=== PATIENT | male | born 1930 | race Caucasian/White ===

== ENCOUNTER → 2017-05-23 | Outpatient (POV) | LOC: OUTPT 00:01 | PROVIDERS: ATTEND Otolaryngology | DX: H91.90 Unspecified hearing loss, unspecified ear (principal) | CPT/HCPCS: 92557; 92567 ==

== ENCOUNTER 2018-12-27 10:00 | Outpatient (RCR) ==
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
--- NOTE | 2018-12-21 12:06 | RS.OPPTDN ---
Subjective Date of Note: 12/21/18 Visit #: 2 Number of visits approved by Insurance: NA Date of Evaluation: 12/19/18 Payer Source: MEDICARE Treatment Diagnosis: subdural hematoma Current Subjective/complaints:: Patient very pleasant and motivated to improve.He is doing his HEP often. *Precautions: fall precautions Interventions - Exercise/Activities/Manual Therapy Exercises/Activities: 50 mins. total of ther. ex for LE strengthenng using green theraband for hip abd/add,isometric hip abd /add with therapy ball, bilateral leg press @ 75 # for 02/08 .Standing balance activities for side - stepping ,high -stepping ,heel to toe with CGA/ min. assist of 1. Total minutes of Exercise: 50 Manual Therapy: n/a Total minutes of Manual Therapy: 0 HOME EXERCISE PROGRAM: pt given written HEP including: AP, isometric hip add, seated hip flex, LAQ, seated hip abd/add - Charges Timed Code Treatment Minutes: 50 Total Treatment Time: 50 Procedures billed for this date of service:: ex,NMR 2 Assessment: Patient has good dem,o of each exercises today ,good technique with srengthening,good eccentric control.He has increased trunk sway with heel to toe exercise,but is able to self correct his balnce .We discussed to not do the balance exerises at home ,he understands and agrees to do the strengthening exercises only. Patient Education: Education of diagnosis, Body/Joint mechanics, Home Exercise Program, Home Safety, Activity Modification, Education of Plan of Care Patient demonstrates compliance with HEP?: Yes Short Term Goals Goal #1: pt independent with initial HEP Goal to be met by: 01/09/19 Progress towards Goal:: Progressing Goal #2: Improve BLE strength 4 to 4+/5 Goal to be met by: 01/09/19 Progress towards Goal:: Progressing Goal #3: Improve dyn stand balance as noted by dyn gait index Goal to be met by: 01/09/19 Progress towards Goal:: Progressing Goal #4: pt report no falls at home since eval. Goal to be met by: 01/09/19 Progress towards Goal:: Progressing Alf Goals Goal #1: pt amb community distances with/w/o AD independently no LOB Goal to be met by: 01/30/19 Goal #2: Improve gait speed 1.0meters/sec consistent with community ambulator Goal to be met by: 01/30/19 Goal #3: Dyn gait index score 21/24 to be consistent with min to no risk of falls Goal to be met by: 01/30/19 Goal #4: pt report ability to perform normal household activities independently Goal to be met by: 01/30/19 Plan Dates of Alf Goals: 01/30/19 Expiration date of current Insurance Approval:: NA PLAN: Cont . skilled PT to maximize LE/trunk strength for safe transfers and gait on even/uneven surfaces.
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
--- NOTE | 2018-12-24 08:30 | RS.OTDNOTE ---
Subjective Date of Note: 12/21/18 Visit #: 2 Number of visits approved by Insurance: 12 Date of Evaluation: 12/19/18 Payer Source: MEDICARE Treatment Diagnosis: M25.511 RUE shoulder pain, R27.8 Lack of coordination, M62.81 Weakness *Precautions: fall precautions Current Complaints/Gains: Pt states he does not have any trouble with buttons but writing is a challenge at times. States pain in (R) shoulder. Pain Assessment - Pain Description Pain Description: Dull, Aching Pain Location: right shoulder Pain Description: sore, aches Modalities - Treatment Modality: Ultrasound Parameters/Method Applied: US x 12 mins Treatment Area: (R) shoulder Patient Position: Sitting - Hot Pack/Cryotherapy Treatment: Hot Pack Comments:: HP x 10+ mins Interventions - Exercise/Activities Exercise/Activities/Manual Therapy: Pt ed on HEP/TE/FMC. Restor x 10 mins with 1/4# wrist weights. RTC/AROM B UE's. Pt also performed isometic ex's x 4 directions. HEP education. HOME EXERCISE PROGRAM: isometric exercises to begin. - Objective Findings Objective Findings:: RUE shoulder pain and weakness. Pt has very weak RUE external rotation and shoulder flexion. Impaired coordination and small tremors that are impairing his writing. - Charges Timed Code Treatment Minutes: 51 Total Treatment Time: 62 Procedures billed for this date of service:: HP EX2 US Assessment Patient Education: Education of diagnosis, Body/Joint mechanics, Home Exercise Program, Home Safety, Activity Modification, Education of Plan of Care Patient demonstrates compliance with HEP?: Yes Short Term Goals Goal #1: Pt RUE shoulder strength to increase to 4/5. Goal to be met by: 01/02/19 Progress towards goal: Progressing Goal #2: Pt to increase fine motor coordination to be intact. Goal to be met by: 01/02/19 Progress towards goal: Progressing Goal #3: Pt RUE shoulder pain to decrease to 0-2. Goal to be met by: 01/02/19 Progress towards goal: Progressing Goal #4: Pt to have full shoulder flexion of RUE without pain. Goal to be met by: 01/02/19 Progress towards goal: Progressing Oil Field Equipment Mechanic Goals Goal #1: RUE strength to increase to 4+/5. Goal to be met by: 01/18/19 Progress towards goal: Progressing Goal #2: Pt to be able to write his name more legibly with better coordination. Goal to be met by: 01/18/19 Progress towards goal: Progressing Goal #3: Pt RUE shoulder pain to decrease to 0 with Full AROM. Goal to be met by: 01/18/19 Progress towards goal: Progressing Goal #4: Pt to be independent with his home exercise program Goal to be met by: 01/18/19 Progress towards goal: Progressing Plan Dates of Oil Field Equipment Mechanic Goals: 01/17/19 Expiration date of current Insurance Approval:: 01/17/19 PLAN: Continue per POC to max UE strength and AROM
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
--- NOTE | 2018-12-25 11:57 | RS.OPPTDN ---
Subjective Date of Note: 12/25/18 Visit #: 3 Number of visits approved by Insurance: NA Date of Evaluation: 12/19/18 Payer Source: MEDICARE Treatment Diagnosis: Speech difficulty Current Subjective/complaints:: No c/o,always pleasant and highly motivated to improve. *Precautions: fall precautions Interventions - Exercise/Activities/Manual Therapy Exercises/Activities: 45 mins. total of ther. ex,beginning on elliptical x 2 mins. with supervision ,then LE strengthening /dynamic balance activities, including step ups on 4 " step forward/backward /laterally with CGA of 1.Weaving /stepping over cones in floor with CGA/min. assist of 1.Heel to toe gait with min. of 1.Bilateral leg press ,1 set /15 each @ 75 #,90 # ,and 105#. Total minutes of Exercise: 45 Manual Therapy: n/a Total minutes of Manual Therapy: 0 HOME EXERCISE PROGRAM: pt given written HEP including: AP, isometric hip add, seated hip flex, LAQ, seated hip abd/add - Charges Timed Code Treatment Minutes: 45 Total Treatment Time: 50 Procedures billed for this date of service:: ex 3 Assessment: Patient has increased LE /trunk strength,resulting in steadier transfers and gait.He is able to self -correct any loss of balance today with higher level balance challenges,but is unsteady with weaving around cones or quick change of direction . Patient Education: Education of diagnosis, Body/Joint mechanics, Home Exercise Program, Home Safety, Activity Modification, Education of Plan of Care Patient demonstrates compliance with HEP?: Yes Short Term Goals Goal #1: pt independent with initial HEP Goal to be met by: 01/09/19 Progress towards Goal:: Progressing Goal #2: Improve BLE strength 4 to 4+/5 Goal to be met by: 01/09/19 Progress towards Goal:: Progressing Goal #3: Improve dyn stand balance as noted by dyn gait index Goal to be met by: 01/09/19 Progress towards Goal:: Progressing Goal #4: pt report no falls at home since eval. Goal to be met by: 01/09/19 Progress towards Goal:: Progressing Piano Accompanist Goals Goal #1: pt amb community distances with/w/o AD independently no LOB Goal to be met by: 01/30/19 Goal #2: Improve gait speed 1.0meters/sec consistent with community ambulator Goal to be met by: 01/30/19 Goal #3: Dyn gait index score 21/24 to be consistent with min to no risk of falls Goal to be met by: 01/30/19 Goal #4: pt report ability to perform normal household activities independently Goal to be met by: 01/30/19 Plan Dates of Piano Accompanist Goals: 01/30/19 Expiration date of current Insurance Approval:: NA PLAN: Cont. skilled PT to increase LE strength,improve dynamic balance for safer gait on all surfaces.
--- NOTE | 2018-12-26 08:25 | RS.OTDNOTE ---
Subjective Date of Note: 12/25/18 Visit #: 3 Number of visits approved by Insurance: 12 Date of Evaluation: 12/19/18 Payer Source: MEDICARE Treatment Diagnosis: M25.511 RUE shoulder pain, R27.8 Lack of coordination, M62.81 Weakness *Precautions: fall precautions Current Complaints/Gains: Pt states some (R) shoulder soreness. states tremors while eating and writing. 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 Pain Assessment - Pain Description Pain Description: Dull, Aching Pain Location: right shoulder Pain Description: sore, aches Modalities - Treatment Modality: Ultrasound Parameters/Method Applied: 1.5w/cm2 x10 mins Treatment Area: anterior shoulder - Hot Pack/Cryotherapy Treatment: Hot Pack Comments:: HP x 10+ mins prior to US Interventions - Exercise/Activities Exercise/Activities/Manual Therapy: Pt ed on HEP/TE/FMC. Restor x 10 mins with 1/4# wrist weights. RTC/AROM B UE's. Pt also performed isometic ex's x 4 directions. HEP education continues. Gradded thera-putty and digi-flex hand strengthing. HOME EXERCISE PROGRAM: isometric exercises and thera-putty HEP - Objective Findings Objective Findings:: RUE shoulder pain and weakness. Pt has very weak RUE external rotation and shoulder flexion. Impaired coordination and small tremors that are impairing his writing. - Charges Timed Code Treatment Minutes: 52 Total Treatment Time: 61 Procedures billed for this date of service:: HP US EX ACT Assessment Patient Education: Education of diagnosis, Body/Joint mechanics, Home Exercise Program, Home Safety, Activity Modification, Education of Plan of Care Patient demonstrates compliance with HEP?: Yes Short Term Goals Goal #1: Pt RUE shoulder strength to increase to 4/5. Goal to be met by: 01/02/19 Progress towards goal: Progressing Goal #2: Pt to increase fine motor coordination to be intact. Goal to be met by: 01/02/19 Progress towards goal: Progressing Goal #3: Pt RUE shoulder pain to decrease to 0-2. Goal to be met by: 01/02/19 Progress towards goal: Progressing Goal #4: Pt to have full shoulder flexion of RUE without pain. Goal to be met by: 01/02/19 Progress towards goal: Progressing Half-Way Goals Goal #1: RUE strength to increase to 4+/5. Goal to be met by: 01/18/19 Progress towards goal: Progressing Goal #2: Pt to be able to write his name more legibly with better coordination. Goal to be met by: 01/18/19 Progress towards goal: Progressing Goal #3: Pt RUE shoulder pain to decrease to 0 with Full AROM. Goal to be met by: 01/18/19 Progress towards goal: Progressing Goal #4: Pt to be independent with his home exercise program Goal to be met by: 01/18/19 Progress towards goal: Progressing Plan Dates of Data Modeling Specialist Goals: 01/17/19 Expiration date of current Insurance Approval:: 01/17/19 PLAN: Continue per POC to max functional UE AROM/strength
--- NOTE | 2018-12-27 11:33 | RS.OPPTDN ---
Subjective Date of Note: 12/27/18 Visit #: 4 Number of visits approved by Insurance: NA Date of Evaluation: 12/19/18 Payer Source: MEDICARE Treatment Diagnosis: Speech difficulty Current Subjective/complaints:: Patient reports he occasionally has difficulty with "getting the words out",but otherwise feels good.He is highly motivated to improve. *Precautions: fall precautions Interventions - Exercise/Activities/Manual Therapy Exercises/Activities: 45 mins. total of ther. ex,beginning on elliptical x 2 mins. with supervision ,then LE strengthening /dynamic balance activities, including standing on mini-tramp and reaching for cones at arms length step ups on 4 " step forward/backward /laterally with CGA of 1.Weaving /stepping over cones in floor with CGA/min. assist of 1.Heel to toe gait with min. of 1.Bilateral leg press ,315 @ 105#. Total minutes of Exercise: 45 Manual Therapy: n/a Total minutes of Manual Therapy: 0 HOME EXERCISE PROGRAM: pt given written HEP including: AP, isometric hip add, seated hip flex, LAQ, seated hip abd/add - Charges Timed Code Treatment Minutes: 45 Total Treatment Time: 45 Procedures billed for this date of service:: ex 3 Assessment: Patient progressing well ,improved step length and GABBY with walking, has minimal loss of balance standing on trampoline ,but able to self -correct with verbal cues only.He is compliant to HEP daily. Patient Education: Education of diagnosis, Body/Joint mechanics, Home Exercise Program, Home Safety, Activity Modification, Education of Plan of Care Patient demonstrates compliance with HEP?: Yes Short Term Goals Goal #1: pt independent with initial HEP Goal to be met by: 01/09/19 Progress towards Goal:: Progressing Goal #2: Improve BLE strength 4 to 4+/5 Goal to be met by: 01/09/19 Progress towards Goal:: Progressing Goal #3: Improve dyn stand balance as noted by dyn gait index Goal to be met by: 01/09/19 Progress towards Goal:: Progressing Goal #4: pt report no falls at home since eval. Goal to be met by: 01/09/19 Progress towards Goal:: Progressing Clinical Pharmacy Coordinator Goals Goal #1: pt amb community distances with/w/o AD independently no LOB Goal to be met by: 01/30/19 Progress towards goal: Progressing Goal #2: Improve gait speed 1.0meters/sec consistent with community ambulator Goal to be met by: 01/30/19 Goal #3: Dyn gait index score 21/24 to be consistent with min to no risk of falls Goal to be met by: 01/30/19 Goal #4: pt report ability to perform normal household activities independently Goal to be met by: 01/30/19 Progress towards goal: Progressing Plan Dates of Clinical Pharmacy Coordinator Goals: 01/30/19 Expiration date of current Insurance Approval:: NA PLAN: Cont. skilled PT to maximize trunk/LE strength for safe ADL's.
--- NOTE | 2018-12-27 13:20 | RS.OTDNOTE ---
Subjective Date of Note: 12/27/18 Visit #: 4 Number of visits approved by Insurance: 12 Date of Evaluation: 12/19/18 Payer Source: MEDICARE Treatment Diagnosis: M25.511 RUE shoulder pain, R27.8 Lack of coordination, M62.81 Weakness *Precautions: fall precautions Current Complaints/Gains: Pt states UE feels better but he has not tried playing his violin yet. States pain increase with anterior shoulder palpation. Pain Assessment - Pain Description Pain Description: Dull, Aching Pain Location: right shoulder Pain Description: sore, aches Current Pain Intensity: 3 Worst Pain Intensity: 6 Modalities - Treatment Modality: Ultrasound Parameters/Method Applied: 1.5w/cm2 x 12 mins to anterior shoulder Patient Position: Sitting - Hot Pack/Cryotherapy Treatment: Hot Pack, Cryotherapy Interventions - Exercise/Activities Exercise/Activities/Manual Therapy: Pt ed on HEP/TE/FMC. Restor x 10 mins with 1/4# wrist weights. RTC/AROM B UE's. Pt also performed isometic ex's x 4 directions. HEP education continues. Gradded thera-putty and digi-flex hand strengthing. HOME EXERCISE PROGRAM: isometric exercises and thera-putty HEP - Objective Findings Objective Findings:: RUE shoulder pain and weakness. Pt has very weak RUE external rotation and shoulder flexion. Impaired coordination and small tremors that are impairing his writing/typing. (R) shoulder pain also hindering his ability to hold his violin for extended periods of time. - Charges Timed Code Treatment Minutes: 42 Total Treatment Time: 55 Procedures billed for this date of service:: HP US EX ACT Assessment Patient Education: Education of diagnosis, Body/Joint mechanics, Home Exercise Program, Home Safety, Activity Modification, Education of Plan of Care Patient demonstrates compliance with HEP?: Yes Short Term Goals Goal #1: Pt RUE shoulder strength to increase to 4/5. Goal to be met by: 01/02/19 Progress towards goal: Progressing Goal #2: Pt to increase fine motor coordination to be intact. Goal to be met by: 01/02/19 Progress towards goal: Progressing Goal #3: Pt RUE shoulder pain to decrease to 0-2. Goal to be met by: 01/02/19 Progress towards goal: Progressing Goal #4: Pt to have full shoulder flexion of RUE without pain. Goal to be met by: 01/02/19 Progress towards goal: Progressing Websphere Commerce Architect Goals Goal #1: RUE strength to increase to 4+/5. Goal to be met by: 01/18/19 Progress towards goal: Progressing Goal #2: Pt to be able to write his name more legibly with better coordination. Goal to be met by: 01/18/19 Progress towards goal: Progressing Goal #3: Pt RUE shoulder pain to decrease to 0 with Full AROM. Goal to be met by: 01/18/19 Progress towards goal: Progressing Goal #4: Pt to be independent with his home exercise program Goal to be met by: 01/18/19 Progress towards goal: Progressing Plan Dates of Websphere Commerce Architect Goals: 01/17/19 Expiration date of current Insurance Approval:: 01/17/19 PLAN: Continue per POC to max fx UE strength and AROM
== END 2018-12-27 23:59 ==
PROVIDERS: ATTEND Neurological Surgery
DX: G45.9 Transient cerebral ischemic attack, unspecified (principal); R26.9 Unspecified abnormalities of gait and mobility; R47.9 Unspecified speech disturbances; S06.5X9A Traumatic subdural hemorrhage with loss of consciousness of unspecified duration, initial encounter; R41.841 Cognitive communication deficit; M62.81 Muscle weakness (generalized); I62.00 Nontraumatic subdural hemorrhage, unspecified; M25.511 Pain in right shoulder; R27.8 Other lack of coordination; Z98.890 Other specified postprocedural states

== ENCOUNTER 2019-01-24 09:00 | Outpatient (RCR) ==
--- NOTE | 2019-01-01 11:36 | RS.OPPTDN ---
Subjective Date of Note: 01/01/19 Visit #: 6 Number of visits approved by Insurance: NA Date of Evaluation: 12/19/18 Payer Source: MEDICARE Treatment Diagnosis: Speech difficulty Current Subjective/complaints:: Patient reports increased dizziness yesterday , but feels it may be due to meds. ,as his BP is good and he monitors the BP daily. *Precautions: fall precautions Interventions - Exercise/Activities/Manual Therapy Exercises/Activities: 55 mins. total ,10 min. on bike,then 45 mins. on [employer] for postural stability,limits of stability,toss/catch,weight shifting . Total minutes of Exercise: 55 Manual Therapy: n/a HOME EXERCISE PROGRAM: pt given written HEP including: AP, isometric hip add, seated hip flex, LAQ, seated hip abd/add - Charges Timed Code Treatment Minutes: 45 Total Treatment Time: 55 Procedures billed for this date of service:: NMR 3 Assessment: Patient has improved static and dynamic balance.He is able to self- correct all balance challenges today.He has no c/o dizziness while on BIODEX BALANCE SYSTEM.He is very motivated to improve. Patient Education: Education of diagnosis, Body/Joint mechanics, Home Exercise Program, Home Safety, Activity Modification, Education of Plan of Care Patient demonstrates compliance with HEP?: Yes Short Term Goals Goal #1: pt independent with initial HEP Goal to be met by: 01/09/19 Progress towards Goal:: Progressing Goal #2: Improve BLE strength 4 to 4+/5 Goal to be met by: 01/09/19 Progress towards Goal:: Progressing Goal #3: Improve dyn stand balance as noted by dyn gait index Goal to be met by: 01/09/19 Progress towards Goal:: Progressing Goal #4: pt report no falls at home since eval. Goal to be met by: 01/09/19 Progress towards Goal:: Met Smt Technician Goals Goal #1: pt amb community distances with/w/o AD independently no LOB Goal to be met by: 01/30/19 Progress towards goal: Progressing Goal #2: Improve gait speed 1.0meters/sec consistent with community ambulator Goal to be met by: 01/30/19 Goal #3: Dyn gait index score to be consistent with min to no risk of falls Goal to be met by: 01/30/19 Goal #4: pt report ability to perform normal household activities independently Goal to be met by: 01/30/19 Progress towards goal: Progressing Plan Dates of Snf Goals: 01/30/19 Expiration date of current Insurance Approval:: NA PLAN: Cont. skilled PT to return patient to PLOF ,resulting in safe ADL's.
--- NOTE | 2019-01-01 13:45 | RS.OTDNOTE ---
Subjective Date of Note: 01/01/19 Visit #: 5 Number of visits approved by Insurance: 12 Date of Evaluation: 12/19/18 Payer Source: MEDICARE Treatment Diagnosis: M25.511 RUE shoulder pain, R27.8 Lack of coordination, M62.81 Weakness *Precautions: fall precautions Current Complaints/Gains: Pt continues with c/o pain in his (R) shoulder. States he was able to play his violin in [employer] Monday but does not think he played it as well as normal 2* his bow handeling. Pain Assessment - Pain Description Pain Location: right shoulder Pain Description: sore, aches Current Pain Intensity: 2+ Modalities - Treatment Modality: Ultrasound Parameters/Method Applied: 1.5w/cm2 x12 mins to anterior shoulder. Patient Position: Sitting - Hot Pack/Cryotherapy Treatment: Hot Pack Comments:: x 15 mins prior to TE Interventions - Exercise/Activities Exercise/Activities/Manual Therapy: Pt ed on HEP/TE/FMC continued. Pt also performed isometic ex's x 4 directions and codman's ex's with HEP education continued. Gradded thera-putty and digi-flex hand strengthing and PROM performed with MT to trapezius and anterior shoulder. HEP/worksheet handed out with pt and CG instructions given. HOME EXERCISE PROGRAM: isometric exercises and thera-putty HEP - Objective Findings Objective Findings:: RUE shoulder pain and weakness. Pt has very weak RUE external rotation and shoulder flexion. Impaired coordination and small tremors that are impairing his writing/typing. (R) shoulder pain also hindering his ability to hold his violin for extended periods of time. - Charges Timed Code Treatment Minutes: 48 Total Treatment Time: 61 Procedures billed for this date of service:: EX2 US HP Assessment Patient Education: Education of diagnosis, Body/Joint mechanics, Home Exercise Program, Home Safety, Activity Modification, Education of Plan of Care Patient demonstrates compliance with HEP?: Yes Short Term Goals Goal #1: Pt RUE shoulder strength to increase to 4/5. Goal to be met by: 01/02/19 Progress towards goal: Progressing Goal #2: Pt to increase fine motor coordination to be intact. Goal to be met by: 01/02/19 Progress towards goal: Progressing Goal #3: Pt RUE shoulder pain to decrease to 0-2. Goal to be met by: 01/02/19 Progress towards goal: Progressing Goal #4: Pt to have full shoulder flexion of RUE without pain. Goal to be met by: 01/02/19 Progress towards goal: Progressing Alf Goals Goal #1: RUE strength to increase to 4+/5. Goal to be met by: 01/18/19 Progress towards goal: Progressing Goal #2: Pt to be able to write his name more legibly with better coordination. Goal to be met by: 01/18/19 Progress towards goal: Progressing Goal #3: Pt RUE shoulder pain to decrease to 0 with Full AROM. Goal to be met by: 01/18/19 Progress towards goal: Progressing Goal #4: Pt to be independent with his home exercise program Goal to be met by: 01/18/19 Progress towards goal: Progressing Plan Dates of Tobacco Dipper Goals: 01/17/19 Expiration date of current Insurance Approval:: 01/18/19 PLAN: Continue per POC to max fx UE AROM/strength with decreased c/o pain.
--- NOTE | 2019-01-03 11:14 | RS.OPPTDN ---
Subjective Date of Note: 01/03/19 Visit #: 6 Number of visits approved by Insurance: NA Date of Evaluation: 12/19/18 Payer Source: MEDICARE Treatment Diagnosis: Speech difficulty Current Subjective/complaints:: Patient reports feeling good today.He also went to a basketball game earlier this week,went up 2-3 rows of bleachers using the handrail. *Precautions: fall precautions Interventions - Exercise/Activities/Manual Therapy Exercises/Activities: 50 mins. total ,10 min. on bike,then 40 mins. LE AROM with 4 # resistance for LAQ's,seated hip flexion ,3/15 each.Seated hip abduction with red theraband.Standing balance exercises of heel to toe with gait belt and moderate assist of 1,then side stepping and high stepping with CGA of 1. Total minutes of Exercise: 50 Manual Therapy: n/a HOME EXERCISE PROGRAM: pt given written HEP including: AP, isometric hip add, seated hip flex, LAQ, seated hip abd/add - Charges Timed Code Treatment Minutes: 40 Total Treatment Time: 50 Procedures billed for this date of service:: ex 2,NMR Assessment: Patient continues to have improved dynamic balance ,as the LE's and trunk strength improve.He does lose balance with heel to toe ,but normal balance challenges do not affect his balance.He is highly motivated to improve, does HEP daily. Patient Education: Education of diagnosis, Body/Joint mechanics, Home Exercise Program, Home Safety, Activity Modification, Education of Plan of Care Patient demonstrates compliance with HEP?: Yes Short Term Goals Goal #1: pt independent with initial HEP Goal to be met by: 01/09/19 Progress towards Goal:: Progressing Goal #2: Improve BLE strength 4 to 4+/5 Goal to be met by: 01/09/19 Progress towards Goal:: Met Goal #3: Improve dyn stand balance as noted by dyn gait index Goal to be met by: 01/09/19 Progress towards Goal:: Progressing Goal #4: pt report no falls at home since eval. Goal to be met by: 01/09/19 Progress towards Goal:: Met Mathematics Education Professor Goals Goal #1: pt amb community distances with/w/o AD independently no LOB Goal to be met by: 01/30/19 Progress towards goal: Progressing Goal #2: Improve gait speed 1.0meters/sec consistent with community ambulator Goal to be met by: 01/30/19 (not assessed today) Goal #3: Dyn gait index score 21/24 to be consistent with min to no risk of falls Goal to be met by: 01/30/19 Goal #4: pt report ability to perform normal household activities independently Goal to be met by: 01/30/19 Progress towards goal: Progressing Plan Dates of Mathematics Education Professor Goals: 01/30/19 Expiration date of current Insurance Approval:: NA PLAN: Cont. skilled PT to maximize LE/trunk strength ,for safer gait on all surfaces.
--- NOTE | 2019-01-03 13:42 | RS.OTDNOTE ---
Subjective Date of Note: 01/03/19 Visit #: 6 Number of visits approved by Insurance: 12 Date of Evaluation: 12/19/18 Payer Source: MEDICARE Treatment Diagnosis: M25.511 RUE shoulder pain, R27.8 Lack of coordination, M62.81 Weakness *Precautions: fall precautions Current Complaints/Gains: Pt states arm is feeling better but still not playing the violin as easily. States typing seems easier to keep fingers on the correct keys. Pain Assessment - Pain Description Pain Location: right shoulder Pain Description: sore, aches Modalities - Treatment Modality: Ultrasound Parameters/Method Applied: 1.5w/cm2 x 12 mins to anterior shoulder Patient Position: Sitting - Hot Pack/Cryotherapy Treatment: Cryotherapy Interventions - Exercise/Activities Exercise/Activities/Manual Therapy: Pt ed continued on HEP/TE/FMC. Pt also performed isometic ex's x 4 directions and codman's ex's with HEP education continued. Gradded thera-putty and digi-flex hand strengthing and PROM performed with MT to trapezius and anterior shoulder. Restorator also performed x 10 mins, no rests. HOME EXERCISE PROGRAM: isometric exercises and thera-putty HEP - Objective Findings Objective Findings:: RUE shoulder pain and weakness. Pt has very weak RUE external rotation and shoulder flexion. Impaired coordination and small tremors that are impairing his writing/typing. (R) shoulder pain also hindering his ability to hold his violin for extended periods of time. - Charges Timed Code Treatment Minutes: 51 Total Treatment Time: 62 Procedures billed for this date of service:: CP US EX MT Assessment Patient Education: Education of diagnosis, Body/Joint mechanics, Home Exercise Program, Home Safety, Activity Modification, Education of Plan of Care Patient demonstrates compliance with HEP?: Yes Short Term Goals Goal #1: Pt RUE shoulder strength to increase to 4/5. Goal to be met by: 01/02/19 (4-4/5) Progress towards goal: Progressing Goal #2: Pt to increase fine motor coordination to be intact. Goal to be met by: 01/02/19 Progress towards goal: Progressing Goal #3: Pt RUE shoulder pain to decrease to 0-2. Goal to be met by: 01/02/19 (2/10) Progress towards goal: Partially Met Goal #4: Pt to have full shoulder flexion of RUE without pain. Goal to be met by: 01/02/19 (01/06) Progress towards goal: Partially Met Prison Goals Goal #1: RUE strength to increase to 4+/5. Goal to be met by: 01/18/19 Progress towards goal: Progressing Goal #2: Pt to be able to write his name more legibly with better coordination. Goal to be met by: 01/18/19 Progress towards goal: Progressing Goal #3: Pt RUE shoulder pain to decrease to 0 with Full AROM. Goal to be met by: 01/18/19 Progress towards goal: Progressing Goal #4: Pt to be independent with his home exercise program Goal to be met by: 01/18/19 Progress towards goal: Progressing Plan Dates of Prison Goals: 01/17/19 Expiration date of current Insurance Approval:: 01/17/19 PLAN: Continue per POC to max functional UE AROM with decreased c/o pain.
--- NOTE | 2019-01-08 11:24 | RS.OPPTDN ---
Subjective Date of Note: 01/08/19 Visit #: 7 Number of visits approved by Insurance: NA Date of Evaluation: 12/19/18 Payer Source: MEDICARE Treatment Diagnosis: Speech difficulty Current Subjective/complaints:: Patient is pleased with his progress ,feels his balance is better and his legs feel stronger. *Precautions: fall precautions Interventions - Exercise/Activities/Manual Therapy Exercises/Activities: 50 mins. total ,10 min. on bike,then 40 mins. LE AROM on bilateral leg press,3/15 each with 1 set @ 105#,2 sets @ 120.Single leg press for each @ 45 - 60 # ,3/10.Seated calf raises @ 45 # x 20 reps.Standing balance exercises of high-stepping ,heel to toe side-stepping to L and R. Total minutes of Exercise: 50 Manual Therapy: n/a Total minutes of Manual Therapy: 0 HOME EXERCISE PROGRAM: pt given written HEP including: AP, isometric hip add, seated hip flex, LAQ, seated hip abd/add - Charges Timed Code Treatment Minutes: 40 Total Treatment Time: 50 Procedures billed for this date of service:: ex 2,NMR Assessment: Patient has increased LE strenght,steadier gait .He has no loss of balance with high stepping exercise today,indicating increased strength in the hip abd/adductors also.He reports no headaches or dizziness during the day,no recent falls or near falls at home.He is highly motivated ,desires to return to riding a bike outdoors when feasible. Patient Education: Education of diagnosis, Body/Joint mechanics, Home Exercise Program, Home Safety, Activity Modification, Education of Plan of Care Patient demonstrates compliance with HEP?: Yes Short Term Goals Goal #1: pt independent with initial HEP Goal to be met by: 01/09/19 Progress towards Goal:: Met Goal #2: Improve BLE strength 4 to 4+/5 Goal to be met by: 01/09/19 Progress towards Goal:: Met Goal #3: Improve dyn stand balance as noted by dyn gait index Goal to be met by: 01/09/19 Progress towards Goal:: Progressing Goal #4: pt report no falls at home since eval. Goal to be met by: 01/09/19 Progress towards Goal:: Met Retirement Goals Goal #1: pt amb community distances with/w/o AD independently no LOB Goal to be met by: 01/30/19 Progress towards goal: Progressing Goal #2: Improve gait speed 1.0meters/sec consistent with community ambulator Goal to be met by: 01/30/19 (not assessed today) Progress towards goal: Progressing Goal #3: Dyn gait index score 21/24 to be consistent with min to no risk of falls Goal to be met by: 01/30/19 Goal #4: pt report ability to perform normal household activities independently Goal to be met by: 01/30/19 Progress towards goal: Progressing Plan Dates of Retirement Goals: 01/30/19 Expiration date of current Insurance Approval:: NA PLAN: Cont. skilled PT to return to independent living safely,focusing on balance and gait on all surfaces,even and uneven.
--- NOTE | 2019-01-08 14:49 | RS.OTDNOTE ---
Subjective Date of Note: 01/08/19 Visit #: 7 Number of visits approved by Insurance: 12 Date of Evaluation: 12/19/18 Payer Source: MEDICARE Treatment Diagnosis: M25.511 RUE shoulder pain, R27.8 Lack of coordination, M62.81 Weakness *Precautions: fall precautions Current Complaints/Gains: Pt states he was able to hold his violin and has decreased c/o pain. States "sore spot is smaller and harder to find" with palpation. Pain Assessment - Pain Description Pain Location: right shoulder Pain Description: sore, aches Modalities - Treatment Modality: Ultrasound Parameters/Method Applied: 1.5w/cm2 x 12 mins Treatment Area: anterior shoulder Patient Position: Sitting - Hot Pack/Cryotherapy Treatment: Hot Pack Comments:: Prior to therapy Interventions - Exercise/Activities Exercise/Activities/Manual Therapy: Pt ed continued on HEP/TE/FMC. Pt also performed isometic ex's x 4 directions and codman's ex's with HEP education continued. Gradded thera-putty and digi-flex hand strengthing and PROM performed with MT to trapezius and anterior shoulder. Restorator also performed x 10 mins, no rests. HOME EXERCISE PROGRAM: isometric exercises and thera-putty HEP - Objective Findings Objective Findings:: RUE shoulder pain and weakness. Pt has very weak RUE external rotation and shoulder flexion. Impaired coordination and small tremors that are impairing his writing/typing. (R) shoulder pain also hindering his ability to hold his violin for extended periods of time. - Charges Timed Code Treatment Minutes: 46 Total Treatment Time: 61 Procedures billed for this date of service:: HP US EX ACT Assessment Patient Education: Education of diagnosis, Body/Joint mechanics, Home Exercise Program, Home Safety, Activity Modification, Education of Plan of Care Patient demonstrates compliance with HEP?: Yes Short Term Goals Goal #1: Pt RUE shoulder strength to increase to 4/5. Goal to be met by: 01/02/19 (4-4/5) Progress towards goal: Progressing Goal #2: Pt to increase fine motor coordination to be intact. Goal to be met by: 01/02/19 Progress towards goal: Progressing Goal #3: Pt RUE shoulder pain to decrease to 0-2. Goal to be met by: 01/02/19 (10) Progress towards goal: Partially Met Goal #4: Pt to have full shoulder flexion of RUE without pain. Goal to be met by: 01/02/19 (01/06) Progress towards goal: Partially Met Highway Maintenance Worker Goals Goal #1: RUE strength to increase to 4+/5. Goal to be met by: 01/18/19 Progress towards goal: Progressing Goal #2: Pt to be able to write his name more legibly with better coordination. Goal to be met by: 01/18/19 Progress towards goal: Progressing Goal #3: Pt RUE shoulder pain to decrease to 0 with Full AROM. Goal to be met by: 01/18/19 Progress towards goal: Progressing Goal #4: Pt to be independent with his home exercise program Goal to be met by: 01/18/19 Progress towards goal: Progressing Plan Dates of Highway Maintenance Worker Goals: 01/17/19 Expiration date of current Insurance Approval:: 01/17/19 PLAN: Continue per POC to max functional UE AROM/strength
--- NOTE | 2019-01-10 10:47 | RS.OTDNOTE ---
Subjective Date of Note: 01/10/19 Visit #: 8 Number of visits approved by Insurance: 12 Date of Evaluation: 12/19/18 Payer Source: MEDICARE Treatment Diagnosis: M25.511 RUE shoulder pain, R27.8 Lack of coordination, M62.81 Weakness *Precautions: fall precautions Current Complaints/Gains: pt continues stating UE improvement. States he was able to play his violin yesterday without any increase of pain. States typing is getting better. Pain Assessment - Pain Description Pain Location: right shoulder Pain Description: sore, aches Current Pain Intensity: 0 Worst Pain Intensity: 2 Modalities - Treatment Modality: Ultrasound Parameters/Method Applied: 1.5w/cm2 x 12 mins Treatment Area: anterior shoudler Patient Position: Sitting - Hot Pack/Cryotherapy Treatment: Hot Pack Comments:: HP x 15 mins Interventions - Exercise/Activities Exercise/Activities/Manual Therapy: Pt ed continued on HEP/TE/FMC. Pt also performed isometic ex's x 4 directions and codman's ex's with HEP education continued. Gradded thera-putty and digi-flex hand strengthing and PROM performed with MT to trapezius and anterior shoulder. Restorator also performed x 10 mins, no rests. Yellow t-band/1# hand weight RTC series, 08/27. HOME EXERCISE PROGRAM: isometric exercises and thera-putty HEP - Objective Findings Objective Findings:: RUE shoulder pain and weakness. Pt has very weak RUE external rotation and shoulder flexion. Impaired coordination and small tremors that are impairing his writing/typing. (R) shoulder pain also hindering his ability to hold his violin for extended periods of time. - Charges Timed Code Treatment Minutes: 48 Total Treatment Time: 61 Procedures billed for this date of service:: HP US EX ACT Assessment Patient Education: Education of diagnosis, Body/Joint mechanics, Home Exercise Program, Home Safety, Activity Modification, Education of Plan of Care Patient demonstrates compliance with HEP?: Yes Short Term Goals Goal #1: Pt RUE shoulder strength to increase to 4/5. Goal to be met by: 01/02/19 Progress towards goal: Met Goal #2: Pt to increase fine motor coordination to be intact. Goal to be met by: 01/02/19 Progress towards goal: Partially Met Goal #3: Pt RUE shoulder pain to decrease to 0-2. Goal to be met by: 01/02/19 (01/06) Progress towards goal: Partially Met Goal #4: Pt to have full shoulder flexion of RUE without pain. Goal to be met by: 01/02/19 (01/06) Progress towards goal: Partially Met [facility] Goals Goal #1: RUE strength to increase to 4+/5. Goal to be met by: 01/18/19 Progress towards goal: Progressing Goal #2: Pt to be able to write his name more legibly with better coordination. Goal to be met by: 01/18/19 (enriqueta) Progress towards goal: Partially Met Goal #3: Pt RUE shoulder pain to decrease to 0 with Full AROM. Goal to be met by: 01/18/19 Progress towards goal: Progressing Goal #4: Pt to be independent with his home exercise program Goal to be met by: 01/18/19 Progress towards goal: Progressing Plan Dates of Prison Goals: 01/17/19 Expiration date of current Insurance Approval:: 01/17/19 PLAN: Continue per POC to max functional UE AROM with decreased c/o pain/ fatique.
--- NOTE | 2019-01-10 11:02 | RS.OPPTDN ---
Subjective Date of Note: 01/10/19 Visit #: 8 Number of visits approved by Insurance: NA Date of Evaluation: 12/19/18 Payer Source: MEDICARE Treatment Diagnosis: Speech difficulty Current Subjective/complaints:: no c/o,pleasant and motivated. *Precautions: fall precautions Interventions - Exercise/Activities/Manual Therapy Exercises/Activities: 50 mins. total ,beginning on BIODEX BALANCE SYSTEM for limits of stability ,maze control.Bilateral leg press ,3/15 @ 120 #,then bilateral calf raises @ 60 #. Total minutes of Exercise: 50 Manual Therapy: n/a Total minutes of Manual Therapy: 0 HOME EXERCISE PROGRAM: pt given written HEP including: AP, isometric hip add, seated hip flex, LAQ, seated hip abd/add - Charges Timed Code Treatment Minutes: 50 Total Treatment Time: 50 Procedures billed for this date of service:: NMR 2 , ex 1 Assessment: Patient has improved dynamic balance on the BIODEX today,less cues for technique.The LE's /trunk strength also improving ,as indicated by no recent falls and better gait pattern.He continues to be highly motivated. Patient Education: Education of diagnosis, Body/Joint mechanics, Home Exercise Program, Home Safety, Activity Modification, Education of Plan of Care Patient demonstrates compliance with HEP?: Yes Short Term Goals Goal #1: pt independent with initial HEP Goal to be met by: 01/09/19 Progress towards Goal:: Met Goal #2: Improve BLE strength 4 to 4+/5 Goal to be met by: 01/09/19 Progress towards Goal:: Met Goal #3: Improve dyn stand balance as noted by dyn gait index Goal to be met by: 01/09/19 Progress towards Goal:: Progressing Goal #4: pt report no falls at home since eval. Goal to be met by: 01/09/19 Progress towards Goal:: Met Assisted Goals Goal #1: pt amb community distances with/w/o AD independently no LOB Goal to be met by: 01/30/19 Progress towards goal: Progressing Goal #2: Improve gait speed 1.0meters/sec consistent with community ambulator Goal to be met by: 01/30/19 (not assessed today) Progress towards goal: Progressing Goal #3: Dyn gait index score /24 to be consistent with min to no risk of falls Goal to be met by: 01/30/19 Goal #4: pt report ability to perform normal household activities independently Goal to be met by: 01/30/19 Progress towards goal: Progressing Plan Dates of Assisted Goals: 01/30/19 Expiration date of current Insurance Approval:: NA PLAN: Cont .skilled PT to maximize the LE/trunk strength for safe ADL's .
--- NOTE | 2019-01-15 11:14 | RS.OPPTDN ---
Subjective Date of Note: 01/15/19 Visit #: 9 Number of visits approved by Insurance: NA Date of Evaluation: 12/19/18 Payer Source: MEDICARE Treatment Diagnosis: Speech difficulty Current Subjective/complaints:: No c/o,reports feeling steadier on his feet. *Precautions: fall precautions Interventions - Exercise/Activities/Manual Therapy Exercises/Activities: 55 mins. total ,beginning with seated exercises with 3 # resistance for 3/15 calf-raises,hip flexion,LAQ's.Standing balance exercises standing on [employer] PLATFORM SYSTEM,min assist for green and blue platform,then min to mod assist on black ,softer platform.Side - stepping to L and R with supervision .Sit to stand transfers x 3 without using arms to assist.Ended session on bilateral leg press, @ 120 #,then @ 135#. Total minutes of Exercise: 55 Manual Therapy: n/a Total minutes of Manual Therapy: 0 HOME EXERCISE PROGRAM: pt given written HEP including: AP, isometric hip add, seated hip flex, LAQ, seated hip abd/add - Charges Timed Code Treatment Minutes: 55 Total Treatment Time: 55 Procedures billed for this date of service:: ex 3,NMR Assessment: Patient has increased LE strength ,improved static and dynamic balance,safer transfers.He is very pro-active regarding his health,exercises daily,and has good safety awareness. Patient Education: Education of diagnosis, Body/Joint mechanics, Home Exercise Program, Home Safety, Activity Modification, Education of Plan of Care Patient demonstrates compliance with HEP?: Yes Short Term Goals Goal #1: pt independent with initial HEP Goal to be met by: 01/09/19 Progress towards Goal:: Met Goal #2: Improve BLE strength 4 to 4+/5 Goal to be met by: 01/09/19 Progress towards Goal:: Met Goal #3: Improve dyn stand balance as noted by dyn gait index Goal to be met by: 01/09/19 Progress towards Goal:: Progressing Goal #4: pt report no falls at home since eval. Goal to be met by: 01/09/19 Progress towards Goal:: Met Floorhand Goals Goal #1: pt amb community distances with/w/o AD independently no LOB Goal to be met by: 01/30/19 Progress towards goal: Progressing Goal #2: Improve gait speed 1.0meters/sec consistent with community ambulator Goal to be met by: 01/30/19 (not assessed today) Progress towards goal: Progressing Goal #3: Dyn gait index score 21/24 to be consistent with min to no risk of falls Goal to be met by: 01/30/19 Progress towards goal: Progressing Goal #4: pt report ability to perform normal household activities independently Goal to be met by: 01/30/19 Progress towards goal: Progressing Plan Dates of Floorhand Goals: 01/30/19 Expiration date of current Insurance Approval:: NA PLAN: Cont. skilled PT to return patient to highest LOF possible ,with safe ADL' S.
--- NOTE | 2019-01-15 11:15 | RS.OTDNOTE ---
Subjective Date of Note: 01/15/19 Visit #: 9 Number of visits approved by Insurance: 12 Date of Evaluation: 12/19/18 Payer Source: MEDICARE Treatment Diagnosis: M25.511 RUE shoulder pain, R27.8 Lack of coordination, M62.81 Weakness *Precautions: fall precautions Current Complaints/Gains: Pt continues stating playing his violin is getting easier but no change in handwriting. States he is able to write Edu but Simone his hand gets shaky. Pain Assessment - Pain Description Pain Location: right shoulder Pain Description: sore, aches Modalities - Treatment Modality: Ultrasound Parameters/Method Applied: 1.5w/cm2 x 12 mins, anterior shoulder Patient Position: Sitting - Hot Pack/Cryotherapy Treatment: Hot Pack, Cryotherapy Interventions - Exercise/Activities Exercise/Activities/Manual Therapy: Pt ed continued on HEP/TE/FMC. Pt also performed isometic ex's x 4 directions and codman's ex's with HEP education continued. Gradded thera-putty and digi-flex hand strengthing and PROM performed with MT to trapezius and anterior shoulder. Restorator also performed x 10 mins, no rests. Yellow progressed to red t-band/1# hand weight RTC series, 08/27. Pt also ed on handwriting ex's including hoops, lines, curves , and hills. HOME EXERCISE PROGRAM: isometric exercises and thera-putty HEP - Objective Findings Objective Findings:: RUE shoulder pain and weakness. Pt has very weak RUE external rotation and shoulder flexion. Impaired coordination and small tremors that are impairing his writing/typing. (R) shoulder pain also hindering his ability to hold his violin for extended periods of time. - Charges Timed Code Treatment Minutes: 51 Total Treatment Time: 60 Procedures billed for this date of service:: CP US EX ACT Short Term Goals Goal #1: Pt RUE shoulder strength to increase to 4/5. Goal to be met by: 01/02/19 Progress towards goal: Met Goal #2: Pt to increase fine motor coordination to be intact. Goal to be met by: 01/02/19 Progress towards goal: Partially Met Goal #3: Pt RUE shoulder pain to decrease to 0-2. Goal to be met by: 01/02/19 (01/06) Progress towards goal: Partially Met Goal #4: Pt to have full shoulder flexion of RUE without pain. Goal to be met by: 01/02/19 (01/06) Progress towards goal: Partially Met Nursing Home Goals Goal #1: RUE strength to increase to 4+/5. Goal to be met by: 01/18/19 Progress towards goal: Progressing Goal #2: Pt to be able to write his name more legibly with better coordination. Goal to be met by: 01/18/19 (fatiques) Progress towards goal: Partially Met Goal #3: Pt RUE shoulder pain to decrease to 0 with Full AROM. Goal to be met by: 01/18/19 Progress towards goal: Progressing Goal #4: Pt to be independent with his home exercise program Goal to be met by: 01/18/19 Progress towards goal: Progressing Plan Dates of Oiler Helper Goals: 01/17/19 Expiration date of current Insurance Approval:: 01/17/19 PLAN: Continue per POC to max fx UE AROM with decreased c/o pain
--- NOTE | 2019-01-17 11:32 | RS.OPPTDN ---
Subjective Date of Note: 01/17/19 Visit #: 10 Number of visits approved by Insurance: NA Date of Evaluation: 12/19/18 Payer Source: MEDICARE Treatment Diagnosis: Speech difficulty Current Subjective/complaints:: Patient pleased with his progress,reports no recent falls or near falls.He continues to be highly motivated ,exercises daily. *Precautions: fall precautions Interventions - Exercise/Activities/Manual Therapy Exercises/Activities: 55 mins. total ,beginning on [employer] BALANCE SYSTEM for random control ,weight shifting ; limits of stability done at all 3 skill levels today with supervision.Ended session on seated bilateral leg press, @ 120 # , then @ 135 #. Total minutes of Exercise: 55 Manual Therapy: n/a Total minutes of Manual Therapy: 0 HOME EXERCISE PROGRAM: pt given written HEP including: AP, isometric hip add, seated hip flex, LAQ, seated hip abd/add - Charges Timed Code Treatment Minutes: 55 Total Treatment Time: 55 Procedures billed for this date of service:: NMR 3,ex 1 Assessment: Patient has increased trunk/LE strength ,resulting in steadier transfers and gait .He reports no falls or near falls at home recently.He reports occasional dizziness when first getting out of bed ,but has good safety awareness and waits till he feels safe before walking.He continues to be highly motivated to improve ,and return to PLOF. Patient Education: Education of diagnosis, Body/Joint mechanics, Home Exercise Program, Home Safety, Activity Modification, Education of Plan of Care Patient demonstrates compliance with HEP?: Yes Short Term Goals Goal #1: pt independent with initial HEP Goal to be met by: 01/09/19 Progress towards Goal:: Met Goal #2: Improve BLE strength 4 to 4+/5 Goal to be met by: 01/09/19 Progress towards Goal:: Met Goal #3: Improve dyn stand balance as noted by dyn gait index Goal to be met by: 01/09/19 Progress towards Goal:: Progressing Goal #4: pt report no falls at home since eval. Goal to be met by: 01/09/19 Progress towards Goal:: Met [facility] Care Goals Goal #1: pt amb community distances with/w/o AD independently no LOB Goal to be met by: 01/30/19 Progress towards goal: Met Goal #2: Improve gait speed 1.0meters/sec consistent with community ambulator Goal to be met by: 01/30/19 (not assessed today) Progress towards goal: Progressing Goal #3: Dyn gait index score 21/24 to be consistent with min to no risk of falls Goal to be met by: 01/30/19 Progress towards goal: Progressing Goal #4: pt report ability to perform normal household activities independently Goal to be met by: 01/30/19 Progress towards goal: Progressing Plan Dates of Senior Care Goals: 01/30/19 Expiration date of current Insurance Approval:: NA PLAN: Cont. skilled PT to achieve highest level of safety for all ADL's,on even/ uneven surfaces.
--- NOTE | 2019-01-18 11:16 | RS.OTQKDC ---
OT Discharge Date of Discharge: 01/18/19 Number of Visits: 10 Reason for Discharge: Patient is getting better. Pain w/AROM above Sh. Height. Tremors with handwriting and handwriting gets smaller the more he writes. Good compliance with CP/HEP (Iso) Cont. improving ability to hold violin longer. Pt is ready to discharge.
--- NOTE | 2019-01-18 15:24 | RS.PTSUM ---
Progress Note/Summary Date of Note: 01/17/19 Date of Evaluation: 12/19/18 Number of Visits: 10 Number of visits approved by Insurance: n/a Reporting Period for this Progress Note: 12/19/18-01/17/19 Current Complaints/Gains: Patient states he is pleased with progress, no reports of falls. pt is very motivated to improve. Objective Measurements/Presentation: Biodex balance: limits of stability at all 3 skill levels with supervision. BLE strength: 4 to 4+/5. pt is independent with HEP. pt amb without AD community distances without LOB. pt with no reports of falls since evals. G Codes: n/a Source of G Code Score: n/a - Short Term Goals Goal #1: pt independent with initial HEP Goal to be met by: 01/09/19 Progress towards Goal:: Met Goal #2: Improve BLE strength 4 to 4+/5 Goal to be met by: 01/09/19 Progress towards Goal:: Met Goal #3: Improve dyn stand balance as noted by dyn gait index Goal to be met by: 01/09/19 Progress towards Goal:: Progressing Goal #4: pt report no falls at home since eval. Goal to be met by: 01/09/19 Progress towards Goal:: Met - [facility] Goals Goal #1: pt amb community distances with/w/o AD independently no LOB Goal to be met by: 01/30/19 Progress towards goal: Progressing Goal #2: Improve gait speed 1.0meters/sec consistent with community ambulator Goal to be met by: 01/30/19 (not assessed today) Progress towards goal: Progressing Goal #3: Dyn gait index score to be consistent with min to no risk of falls Goal to be met by: 01/30/19 Progress towards goal: Progressing Goal #4: pt report ability to perform normal household activities independently Goal to be met by: 01/30/19 Progress towards goal: Progressing - Assessment Assessment of Improvement/Progress: pt has met STG 1, 2, 4. Progressing toward remaining goals. pt has made improvement with LE strength, balance and gait safety. Feel pt would continue to benefit from skilled PT to focus on dyn balance and strength. Summary: Patient has made progress towards goals., Patient demonstrates potential to gain increased function with therapy - Plan Plan: Continue Plan of Care Frequency: 2-3x a week Duration: 2 weeks Dates of Sliver Lap Machine Tender Goals: 01/30/19 Expiration date of current Insurance Approval:: n/a
--- NOTE | 2019-01-22 10:59 | RS.OPPTDN ---
Subjective Date of Note: 01/22/19 Visit #: 11 Number of visits approved by Insurance: na Date of Evaluation: 12/19/18 Payer Source: MEDICARE Treatment Diagnosis: Speech difficulty Current Subjective/complaints:: No c/o,feeling stronger. *Precautions: fall precautions Interventions - Exercise/Activities/Manual Therapy Exercises/Activities: 50 mins. total ,doing Dynamic Gait Assessment on level surface ,stairs, stepping around /stepping over object on floor,walking with horizontal ,then vertical head motion. Total minutes of Exercise: 50 Manual Therapy: n/a Total minutes of Manual Therapy: 0 HOME EXERCISE PROGRAM: pt given written HEP including: AP, isometric hip add, seated hip flex, LAQ, seated hip abd/add - Charges Timed Code Treatment Minutes: 50 Total Treatment Time: 50 Procedures billed for this date of service:: gt. , NMR 2 Assessment: Progressing well in all areas,no loss of balance today with exercises.He is highly motivatred .We discussed initiating the D/c plan due to good progress. Patient Education: Education of diagnosis, Body/Joint mechanics, Home Exercise Program, Home Safety, Activity Modification, Education of Plan of Care Patient demonstrates compliance with HEP?: Yes Short Term Goals Goal #1: pt independent with initial HEP Goal to be met by: 01/09/19 Progress towards Goal:: Met Goal #2: Improve BLE strength 4 to 4+/5 Goal to be met by: 01/09/19 Progress towards Goal:: Met Goal #3: Improve dyn stand balance as noted by dyn gait index Goal to be met by: 01/09/19 () Progress towards Goal:: Met Goal #4: pt report no falls at home since eval. Goal to be met by: 01/09/19 Progress towards Goal:: Met Youth Care Worker Goals Goal #1: pt amb community distances with/w/o AD independently no LOB Goal to be met by: 01/30/19 Progress towards goal: Met Goal #2: Improve gait speed 1.0meters/sec consistent with community ambulator Goal to be met by: 01/30/19 (not assessed today) Progress towards goal: Progressing Goal #3: Dyn gait index score to be consistent with min to no risk of falls Goal to be met by: 01/30/19 Progress towards goal: Met Goal #4: pt report ability to perform normal household activities independently Goal to be met by: 01/30/19 Progress towards goal: Partially Met (supervision for ADL's) Plan Dates of Youth Care Worker Goals: 01/30/19 Expiration date of current Insurance Approval:: na PLAN: Initiate D/c plan after next session.
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
--- NOTE | 2019-01-24 08:14 | RS.OTDNOTE ---
Subjective Date of Note: 01/22/19 Visit #: 11 Number of visits approved by Insurance: 12 Date of Evaluation: 12/19/18 Payer Source: MEDICARE Treatment Diagnosis: M25.511 RUE shoulder pain, R27.8 Lack of coordination, M62.81 Weakness *Precautions: fall precautions Current Complaints/Gains: Pt continues stating improvement with holding his violin and that he continues with his writing practice sheets. States he feels he writes better without the use of the weighted pen. Pt is agreeable to purchasing lined paper to work on sizing of letters. Pain Assessment - Pain Description Pain Location: right shoulder Pain Description: sore, aches Current Pain Intensity: 1 Worst Pain Intensity: 2 Modalities - Treatment Modality: Ultrasound Parameters/Method Applied: 1.5w/cm2 x12 mins Treatment Area: shoulder - Hot Pack/Cryotherapy Treatment: Hot Pack, Cryotherapy Interventions - Exercise/Activities Exercise/Activities/Manual Therapy: Pt ed continued on HEP/TE/FMC. Pt also performed isometic ex's x 4 directions and codman's ex's with HEP education continued. Gradded thera-putty and digi-flex hand strengthing and PROM performed with MT to trapezius and anterior shoulder. Restorator also performed x 10 mins, no rests. Red t-band/1# hand weight RTC series, 08/27. Pt also ed on handwriting ex's including hoops, lines, curves, and hills and performed with a weighted pen. Pt and CG ed on purchase of weighted pen/lg lined paper and UE positioning. x3 row of nut/bolts set also completed along with ed on lined paper/comp writing tech's. HOME EXERCISE PROGRAM: isometric exercises and thera-putty HEP - Objective Findings Objective Findings:: RUE shoulder pain and weakness. Pt has very weak RUE external rotation and shoulder flexion. Impaired coordination and small tremors that are impairing his writing/typing. (R) shoulder pain also hindering his ability to hold his violin for extended periods of time. - Charges Timed Code Treatment Minutes: 62 Total Treatment Time: 71 Procedures billed for this date of service:: US EX ACT2 Assessment Patient Education: Education of diagnosis, Body/Joint mechanics, Home Exercise Program, Home Safety, Activity Modification, Education of Plan of Care Patient demonstrates compliance with HEP?: Yes Short Term Goals Goal #1: Pt RUE shoulder strength to increase to 4/5. Goal to be met by: 01/02/19 Progress towards goal: Met Goal #2: Pt to increase fine motor coordination to be intact. Goal to be met by: 01/02/19 Progress towards goal: Partially Met Goal #3: Pt RUE shoulder pain to decrease to 0-2. Goal to be met by: 01/02/19 (01/06) Progress towards goal: Partially Met Goal #4: Pt to have full shoulder flexion of RUE without pain. Goal to be met by: 01/02/19 (01/06) Progress towards goal: Partially Met Manuscripts Curator Goals Goal #1: RUE strength to increase to 4+/5. Goal to be met by: 01/25/19 Progress towards goal: Progressing Goal #2: Pt to be able to write his name more legibly with better coordination. Goal to be met by: 01/25/19 (fatiques) Progress towards goal: Partially Met Goal #3: Pt RUE shoulder pain to decrease to 0 with Full AROM. Goal to be met by: 01/25/19 Progress towards goal: Partially Met Goal #4: Pt to be independent with his home exercise program Goal to be met by: 01/25/19 Progress towards goal: Partially Met Plan Dates of Senior Care Goals: 01/25/19 Expiration date of current Insurance Approval:: 01/25/19 PLAN: Pt to continue POC x1 tx to max fx UE AROM and strength with decreased c/ o pain.
--- NOTE | 2019-01-24 10:30 | RS.OTDNOTE ---
Subjective Date of Note: 01/24/19 Visit #: 12 Number of visits approved by Insurance: 12 Date of Evaluation: 12/19/18 Payer Source: MEDICARE Treatment Diagnosis: M25.511 RUE shoulder pain, R27.8 Lack of coordination, M62.81 Weakness *Precautions: fall precautions Current Complaints/Gains: Pt states he will continue with ex's at home. States prolonged shoulder elevation increases pain but not as bad. States he is glad he has come to therapy and is pleased with his ability to play his violin better and for longer periods of time. Pain Assessment - Pain Description Pain Location: right shoulder Pain Description: sore, aches Current Pain Intensity: 1 Worst Pain Intensity: 2 Modalities - Treatment Modality: Ultrasound Parameters/Method Applied: 1.5w/cm2 x 12 mins Patient Position: Sitting - Hot Pack/Cryotherapy Treatment: Hot Pack, Cryotherapy Interventions - Exercise/Activities Exercise/Activities/Manual Therapy: Pt ed continued on HEP/TE/FMC. Pt also performed isometic ex's x 4 directions and codman's ex's with HEP education continued. Gradded thera-putty and digi-flex hand strengthing and PROM performed with MT to trapezius and anterior shoulder. Restorator also performed x 10 mins, no rests. Red t-band/1# hand weight RTC series, 08/27. Pt also ed on handwriting ex's including hoops, lines, curves, and hills and performed with a weighted pen. Pt and CG ed on purchase of weighted pen/lg lined paper and UE positioning. x3 row of nut/bolts set also completed along with ed on lined paper/comp writing tech's. HOME EXERCISE PROGRAM: isometric exercises and thera-putty HEP - Objective Findings Objective Findings:: RUE shoulder pain and weakness. Pt has very weak RUE external rotation and shoulder flexion. Impaired coordination and small tremors that are impairing his writing/typing. (R) shoulder pain also hindering his ability to hold his violin for extended periods of time. - Charges Timed Code Treatment Minutes: 61 Total Treatment Time: 72 Procedures billed for this date of service:: CP US EX ACT2 Assessment Patient Education: Education of diagnosis, Body/Joint mechanics, Home Exercise Program, Home Safety, Activity Modification, Education of Plan of Care Patient demonstrates compliance with HEP?: Yes Short Term Goals Goal #1: Pt RUE shoulder strength to increase to 4/5. Goal to be met by: 01/02/19 Progress towards goal: Met Goal #2: Pt to increase fine motor coordination to be intact. Goal to be met by: 01/02/19 Progress towards goal: Partially Met Comments: tremors with fatique Goal #3: Pt RUE shoulder pain to decrease to 0-2. Goal to be met by: 01/02/19 (2/10) Progress towards goal: Met Goal #4: Pt to have full shoulder flexion of RUE without pain. Goal to be met by: 01/02/19 (0-2/10) Progress towards goal: Partially Met Jail Goals Goal #1: RUE strength to increase to 4+/5. Goal to be met by: 01/25/19 Progress towards goal: Progressing Goal #2: Pt to be able to write his name more legibly with better coordination. Goal to be met by: 01/25/19 (fatiques) Progress towards goal: Partially Met Goal #3: Pt RUE shoulder pain to decrease to 0 with Full AROM. Goal to be met by: 01/25/19 Progress towards goal: Partially Met Goal #4: Pt to be independent with his home exercise program Goal to be met by: 01/25/19 Progress towards goal: Partially Met Plan Dates of Jail Goals: 01/25/19 Expiration date of current Insurance Approval:: 01/25/19 PLAN: DC pt at this time. Pt voices good understanding of continued HEP/PRE's. Pt issued red tband and putty with ex sheets.
--- NOTE | 2019-01-24 11:03 | RS.OPPTDN ---
Subjective Date of Note: 01/24/19 Visit #: 12 Number of visits approved by Insurance: na Date of Evaluation: 12/19/18 Payer Source: MEDICARE Treatment Diagnosis: Speech difficulty Current Subjective/complaints:: Pleased with his progress,is agreeable to D/C today,has good understanding of HEP. *Precautions: fall precautions Interventions - Exercise/Activities/Manual Therapy Exercises/Activities: 45 mins. total ,doing [employer] BALANCE SYSTEM at all three skill levels. Total minutes of Exercise: 45 Manual Therapy: n/a Total minutes of Manual Therapy: 0 HOME EXERCISE PROGRAM: pt given written HEP including: AP, isometric hip add, seated hip flex, LAQ, seated hip abd/add - Charges Timed Code Treatment Minutes: 45 Total Treatment Time: 45 Procedures billed for this date of service:: ex 3 Assessment: All goals met,independent with HEP.No recent falls at home ,steady gait. Patient Education: Education of diagnosis, Body/Joint mechanics, Home Exercise Program, Home Safety, Activity Modification, Education of Plan of Care Patient demonstrates compliance with HEP?: Yes Short Term Goals Goal #1: pt independent with initial HEP Goal to be met by: 01/09/19 Progress towards Goal:: Met Goal #2: Improve BLE strength 4 to 4+/5 Goal to be met by: 01/09/19 Progress towards Goal:: Met Goal #3: Improve dyn stand balance as noted by dyn gait index Goal to be met by: 01/09/19 () Progress towards Goal:: Met Goal #4: pt report no falls at home since eval. Goal to be met by: 01/09/19 Progress towards Goal:: Met Jail Goals Goal #1: pt amb community distances with/w/o AD independently no LOB Goal to be met by: 01/30/19 Progress towards goal: Met Goal #2: Improve gait speed 1.0meters/sec consistent with community ambulator Goal to be met by: 01/30/19 (1.7 m/sec.) Progress towards goal: Met Goal #3: Dyn gait index score to be consistent with min to no risk of falls Goal to be met by: 01/30/19 () Progress towards goal: Met Goal #4: pt report ability to perform normal household activities independently Goal to be met by: 01/30/19 Progress towards goal: Met (supervision for ADL's) Plan Dates of Cmm Programmer Goals: 01/30/19 Expiration date of current Insurance Approval:: jaime PLAN: D/C
== END 2019-01-24 23:59 ==
PROVIDERS: ATTEND Neurological Surgery
DX: G45.9 Transient cerebral ischemic attack, unspecified (principal); S06.5X9A Traumatic subdural hemorrhage with loss of consciousness of unspecified duration, initial encounter; R26.9 Unspecified abnormalities of gait and mobility; R47.9 Unspecified speech disturbances